=== PATIENT | female | born 1945 | race Caucasian/White ===

== ENCOUNTER 2018-09-03 12:03 | Outpatient (CLI) | payer MEDICARE, BC ==
--- NOTE | 2018-09-03 14:48 | MRI ---
MRI LEFT KNEE PERFORMED WITHOUT CONTRAST ENHANCEMENT: HISTORY: Left knee pain for the last couple months. FINDINGS: The anterior as well as posterior cruciate ligaments are intact. The lateral meniscus is normal in shape and appearance, other than some subtle blunting to the free e dge of the body of the meniscus. On the medial side, there is a flap type tear, involving the body of the medial meniscus. The tear i nvolves the undersurface and shows some minimal displacement of the meniscal tissue into the meniscot ibial recess. This is closer to the junction of the body and posterior horn. The medial and lateral collateral ligaments and the iliotibial band regions are unremarkable. There is fairly pronounced articular cartilage loss of the medial and lateral facets of the patella. The medial and lateral patellar retinaculum and the quadriceps and patellar tendons are normal. IMPRESSION: 1. Flap type tear involving the body of the medial meniscus. There is some meniscal tissue displace d into the meniscotibial recess. 2. Minimal truncated appearance to the body of the lateral meniscus. 3. 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 POS: [facility]
== END 2018-09-03 12:04 | disposition home or self-care (01) ==
LOC: BICMRI 12:03
PROVIDERS: ATTEND Orthopaedic Surgery
DX: M23.92 Unspecified internal derangement of left knee (principal); S83.242A Other tear of medial meniscus, current injury, left knee, initial encounter; M17.12 Unilateral primary osteoarthritis, left knee

== ENCOUNTER 2018-09-08 13:11 | Outpatient (CLI) | payer MEDICARE, BC ==
[2018-09-08 14:17] LABS: #Basophils 0.1 thou/uL (0.0-0.2); #Eosinphils 0.1 thou/uL (0.0-0.7); #Lymphocytes 2.4 thou/uL (1.20-3.40); #Monocytes 0.6 thou/uL (0.11-0.59); #Neutrophils 5.7 thou/uL (1.40-6.50); %Eosinophils 0.9 % (0.0-10.0); %Lymphocytes 26.7 % (21.0-51.0); %Monocytes 7.3 % (0.0-10.0); %Neutrophils 64.2 % (42.0-75.0); Hemoglobin 15.4 g/dL (12.0-16.0); Mean Corpuscular HGB CONC 35.2 g/dL (32.0-36.0); Mean Corpuscular Hemoglobin 32.1 pg (27.0-31.0); Mean Corpuscular Volume 91.1 fL (78.0-98.0); Mean Platelet Volume 7.7 fL (7.4-10.4); Platelet Count 243 thou/uL (130-400); RBC Distribution Width 11.2 % (11.5-14.5); White Blood Cell (WBC) Count 8.8 thou/uL (4.8-10.8)
[2018-09-08 14:36] LABS: Anion Gap 11 mmol/L (10-20); BUN (Urea Nitrogen) 16 mg/dL (9.8-20.1); Calc. Creatinine Clearance 0 mL/min (70-130); Calcium 9.9 mg/dL (7.8-10.44); Carbon Dioxide 28 mmol/L (23-31); Chloride 104 mmol/L (98-107); Estimated GFR-MDRD 67; Glucose 108 mg/dL (83-110); Potassium 4.1 mmol/L (3.5-5.1); Sodium 139 mmol/L (136-145)
--- NOTE | 2018-09-08 22:08 | EKG ---
Test Reason : Blood Pressure : / mmHG Vent. Rate : 078 BPM Atrial Rate : 078 BPM P-R Int : 150 ms QRS Dur : 064 ms QT Int : 386 ms P-R-T Axes : 068 -03 028 degrees QTc Int : 440 ms Normal sinus rhythm Low voltage QRS Borderline ECG When compared with ECG of 08-APR-2007 15:51, No significant change was found Confirmed by Jodie BROWN ([id number]) on 09/08/2018 10:07:52 PM Referred By: ALEXANDR Confirmed By:Jodie BROWN
== END 2018-09-08 13:12 | disposition home or self-care (01) ==
LOC: LABBT 13:11
PROVIDERS: ATTEND Orthopaedic Surgery
DX: Z01.818 Encounter for other preprocedural examination (principal); S83.207A Unspecified tear of unspecified meniscus, current injury, left knee, initial encounter
CPT/HCPCS: 80048; 85025; 93005; 93010

== ENCOUNTER 2018-09-10 10:45 | Day surgery (SDC) | payer MEDICARE, BC ==
[2018-09-08 13:21] VITALS: BMI 25.2
[2018-09-10] MEDS ORDERED: Clindamycin/D5W 600 mg/50 ml Premix Bag ONE (11:32)
[2018-09-10] MEDS ORDERED: Fentanyl 100 MCG/2 ML VIAL ONE ×2 (11:48→13:33)
[2018-09-10] MEDS ORDERED: Midazolam HCl 2 mg/2 ml Vial ONE ×2 (11:48→13:33)
[2018-09-10] MEDS ORDERED: Lidocaine 2% w/Epinephrine 1:200K 20 ML VIAL ONE (12:52)
[2018-09-10] MEDS ORDERED: Bupivacaine HCl 0.5%/Epinephrine 1:200,000/PF 30 ml Vial ONE (12:52)
[2018-09-10] MEDS ORDERED: PROPOFOL 200 MG/20 ML VIAL ONE (13:09)
[2018-09-10] MEDS ORDERED: Lidocaine 1% PF 5 ML VIAL ONE (13:09)
[2018-09-10] MEDS ORDERED: Dexamethasone 20 MG/5 ML VIAL ONE (13:09)
[2018-09-10] MEDS ORDERED: ePHEDrine/0.9% NaCl/PF SYRINGE 50 mg/10 ml ONE (13:09)
[2018-09-10] MEDS ORDERED: Ondansetron PF 4 MG/2 ML Vial ONE (13:09)
--- NOTE | 2018-09-12 21:16 | OP ---
DATE OF PROCEDURE: 09/10/2018 PREOPERATIVE DIAGNOSIS: Left knee medial meniscus tear. POSTOPERATIVE DIAGNOSIS: Left knee medial meniscus tear. PROCEDURE PERFORMED: Left knee arthroscopy with partial medial meniscectomy. [employer] T[employer] GUIDE: None. ESTIMATED BLOOD LOSS: Minimal. COMPLICATIONS: None. ANESTHESIA: She had a general anesthetic as well as a local knee block. IMPLANTS: No implants. DISPOSITION: She went to recovery room in stable condition. INDICATIONS FOR PROCEDURE: This is a 73-year-old female who comes in complaining of significant pain in her right knee. We were unable to make this go away nonoperatively and at this time, she opted to have surgery. DESCRIPTION OF PROCEDURE: After all appropriate consent forms were explained and signed, she was taken back to the operating room at this time, and was given general anesthetic. Once the anesthesia was appropriate, a tourniquet was placed on the left thigh and the leg was placed in the arthroscopic leg blanchard. The limb was then prepped and draped in standard surgical fashion. The limb was exsanguinated and the tourniquet was taken up to 300 mmHg. An inferolateral portal was established, the scope was placed into the knee joint. A needle localization technique was then used to make a medial working portal. Diagnostic arthroscopy commenced in the notch. The ACL and PCL were probed and found to be intact. The medial compartment was then evaluated. 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 The tibial plateau overall looked pretty good. She had a complex tear of the posterior horn of the medial meniscus, a small radial-type tear in the very posterior horn just aside from the root. She also had a tear more in the body. These were taken down as stable base using meniscal biter and shaver, and the flap tear that was found in the meniscal tibial recess was removed as well. The lateral compartment was probed and found to be intact. patellofemoral joint , there are some grade 2 chondromalacia. The trochlea was in good condition and both gutters were spread through and found to be clean. Again overall, for a 73-year-old, this was a very clean knee. At this time, scope was removed, knee was drained, portals were closed with a simple nylon stitch. Bulky sterile dressing was applied. Tourniquet was let down. The toes pinked up nicely. The patient was awakened and taken to the recovery room in stable condition. All counts were correct at the end of the case and she did receive IV antibiotics. Job ID: [id number]
--- NOTE | 2018-09-13 01:24 | OP ---
DATE OF PROCEDURE: 09/10/2018 PREOPERATIVE DIAGNOSIS: Left knee medial meniscus tear. POSTOPERATIVE DIAGNOSIS: Left knee medial meniscus tear. PROCEDURE PERFORMED: Left knee arthroscopy with partial medial meniscectomy. ASSOCIATE PROFESSOR OF BIBLICAL STUDIES: None. BLOOD LOSS: Minimal. COMPLICATIONS: None. ANESTHESIA: She did have a general anesthetic as well as a local knee block. DISPOSITION: She did go to recovery room in stable condition. INDICATIONS FOR PROCEDURE: This 73-year-old female comes in complaining of pain, catching, and swelling in the knee and an MRI scan showed a meniscus tear over the flap component. At this time, she opted to have surgery. DESCRIPTION OF PROCEDURE: After all appropriate consent forms were explained and signed, she was taken back to the operating room at this time, and was given general anesthetic. Once the anesthesia was appropriate, a tourniquet was placed on to the left thigh and the leg was placed in the arthroscopic leg blanchard. The limb was then prepped and draped in standard surgical fashion. The limb was exsanguinated and the tourniquet was taken up to 300 mmHg. An inferolateral portal was established, the scope was placed into the knee joint. A needle localization technique was then used to make a medial working portal. Diagnostic arthroscopy commenced in the notch. The ACL and PCL were probed and found to be intact. The medial compartment showed there to be some grade 2 changes on the femur. The tibia was in good condition and there was a complex tear at the posterior horn of the medial meniscus with a large flap component with a piece of tissue stuck in the meniscotibial recess. All this unstable tissue was taken with the biter and the shaver back to stable base. Lateral compartments were evaluated and found to be intact. Gutters were swept through and were found to be clean. The patellofemoral joint showed the patella to have some proximal pole grade 2 changes, otherwise remaining portion of patella and the trochlea were in excellent condition. At this time, the scope was removed, knee was drained, and the portals were closed with a simple nylon stitch. Bulky sterile dressing was applied. Tourniquet was let down. Toes pinked up nicely. The patient was awakened and was taken to the recovery room in stable condition. All counts were correct at the end of the case and she received preoperative IV antibiotics. Job ID: [id number]
== END 2018-09-10 16:30 | disposition home or self-care (01) ==
LOC: SDC 10:45
PROVIDERS: ATTEND Orthopaedic Surgery
PROC: 0SBD4ZZ Excision of Left Knee Joint, Percutaneous Endoscopic Approach (ICD-10-PCS; principal; 2018-09-10)
DX: S83.232A Complex tear of medial meniscus, current injury, left knee, initial encounter (principal); Z79.899 Other long term (current) drug therapy; Z88.0 Allergy status to penicillin; Z91.018 Allergy to other foods; Z91.013 Allergy to seafood
CPT/HCPCS: 29881; 97139; G8978; G8979; G8980; J0670; J1100; J2001; J2250; J2405; J2704; J3010; J3490

== ENCOUNTER 2021-12-02 12:33 | Emergency (ER) | payer MEDICARE, BC | END 2021-12-02 16:27 | disposition home or self-care (01) | LOC: ERS 12:33 | DX: M79.89 Other specified soft tissue disorders (principal) | CPT/HCPCS: 71045 ==

== ENCOUNTER 2022-02-20 11:17 | Outpatient (CLI) | payer MEDICARE, BC | END 2022-02-20 11:18 | disposition home or self-care (01) | LOC: BICMAMMO 11:17 | PROVIDERS: ATTEND Nurse Practitioner Adult Health | DX: Z13.820 Encounter for screening for osteoporosis (principal); Z78.0 Asymptomatic menopausal state; M81.0 Age-related osteoporosis without current pathological fracture; M85.88 Other specified disorders of bone density and structure, other site | CPT/HCPCS: 77080 ==

== ENCOUNTER 2025-07-11 10:36 | Outpatient (CLI) | payer MEDICARE | END 2025-07-11 10:37 | disposition home or self-care (01) | LOC: BICMAMMO 10:36 | PROVIDERS: ATTEND Family Medicine | DX: Z78.0 Asymptomatic menopausal state (principal); M81.0 Age-related osteoporosis without current pathological fracture | CPT/HCPCS: 77080 ==